=== PATIENT | male | born 1995 | race Caucasian/White ===

== ENCOUNTER 2018-04-21 07:41 | Day surgery (SDC) | payer OTHER ==
--- NOTE | 2018-04-20 16:07 | PDGENHP ---
History and Physical - Chief Complaint recurrent pilonidal - History of Present Illness 22yo M c recurrent pilonidal cyst. Area occasionally drains and is painful. Waxes and wanes. Denies overt symptoms. Otherwise healthy. History Information I have personally reviewed and updated: medical history, social history, surgical history Review of Systems Review of Systems: ROS: 10pt was reviewed & negative except for what was stated in HPI & below Physical Exam Physical Exam: Constitutional: no apparent distress, appears nourished, not in pain Eyes: PERRL, anicteric sclera, EOMI Ears, Nose, Mouth, Throat: moist mucous membranes, hearing normal, ears appear normal, no oral mucosal ulcers Cardiovascular: regular rate and rhythym, no murmur, rub, or gallop, No edema Respiratory: no respiratory distress, no rales or rhonchi, clear to auscultation Gastrointestinal: normoactive bowel sounds, soft, non-tender abdomen, no palpable masses, other (Rectal: superior cyst, multiple primary openings. ) Genitourinary: no bladder fullness, no bladder tenderness Skin: warm, normal color, no rashes or abrasions, no fluctuance, no induration, No mottled Musculoskeletal: full muscle strength, no muscle tenderness, normal joint ROM, no joint effusions Psychiatric: interacting appropriately, not anxious, not encephalopathic, thought process linear Lymph, Heme, Immunologic: no cervical LAD, no supraclavicular LAD Assessment & Plan Assessment: pilonidal cyst Plan: 22yo M, recurrent pilonidal cyst - to OR for excision and flap closure - RBA discussed
[2018-04-21] MEDS ORDERED: ceFAZolin 2 GM/DEXTROSE 100 ML IV ONE (07:51)
[2018-04-21] MEDS ORDERED: LR 1,000 ML IV ONE (07:52)
[2018-04-21] MEDS ORDERED: METHYLENE BLUE 0.5% 50 MG/10 ML AMP ONE (08:02)
[2018-04-21] MEDS ORDERED: HYDROGEN PEROXIDE 236 ML BOTTLE TP ONE (08:02)
[2018-04-21] MEDS ORDERED: BUPIVACAINE/EPI 0.5% 30 ML SDV ONE (08:02)
--- NOTE | 2018-04-21 08:32 | PDHPUP ---
History & Physical Update H&P update statement: This history and physical update is based on an assessment of the patient which was completed after admission or registration (within 24 hours), but prior to the surgery/procedure. H&P update: H&P reviewed & patient examined, no change in patient's condition since H&P completed
--- NOTE | 2018-04-21 08:59 | PDANEPAE ---
ANE Past Medical History - Cardiovascular History Hx Hypertension: No Hx Arrhythmias: No Hx Chest Pain: No Hx Coronary Artery / Peripheral Vascular Disease: No Hx CHF / Valvular Disease: No Hx Palpitations: No - Pulmonary History Hx COPD: No Hx Asthma/Reactive Airway Disease: No Hx Recent Upper Respiratory Infection: No Hx Oxygen in Use at Home: No Hx Sleep Apnea: No Pulmonary History Comment: RECENTLY HAD BRONCHITIS - Neurologic History Hx Cerebrovascular Accident: No Hx Seizures: No Hx Dementia: No - Endocrine History Hx Diabetes: No Obesity: moderate - Renal History Hx Renal Disorders: No - Liver History Hx Hepatic Disorders: No - Neurological & Psychiatric Hx Hx Neurological and Psychiatric Disorders: No - Cancer History Hx Cancer: No - Congenital Disorder History Hx Congenital Disorders: No - GI History GERD: no Hx Gastrointestinal Disorders: No - Other Health History Other Health History: Autism spectrum - Chronic Pain History Chronic Pain: No - Surgical History Prior Surgeries: appendectomy ANE Review of Systems Review of Systems: - Exercise capacity METS (RN): 4 METS - Systems Respiratory: Reports: cough (bronchitis 2 weeks ago, still coughing) ANE Patient History - Allergies Allergies/Adverse Reactions: No Known Allergies Allergy (Unverified 04/20/18 16:07) - Home Medications Home Medications: Multivitamins 04/21/18 [Last Taken 04/20/18] - NPO status NPO Since - Liquids (Date): 04/20/18 NPO Since - Liquids (Time): 10:45 NPO Since - Solids (Date): 04/20/18 NPO Since - Solids (Time): 10:45 - Anes Hx Anes Hx: no prior problems (1/2 ppd for 5 years) - Smoking Hx Smoking Status: Heavy smoker - Alcohol Use Alcohol Use: None - Family Anes Hx Family Anes Hx: none ANE Labs/Vital Signs - Vital Signs Blood Pressure: 132/68 Heart Rate: 77 Respiratory Rate: 16 O2 Sat (%): 96 Height: 185.42 cm Weight: 131.542 kg ANE Physical Exam - Airway Neck exam: FROM Mallampati Score: Class 1 Mouth exam: normal dental/mouth exam - Pulmonary Pulmonary: clear to auscultation - Cardiovascular Cardiovascular: regular rate and rhythym - ASA Status ASA Status: II ANE Anesthesia Plan Anesthesia Plan: general endotracheal anesthesia
[2018-04-21] MEDS ORDERED: MIDAZOLAM 2 MG/2 ML VIAL IVP ONE (09:00)
[2018-04-21] MEDS ORDERED: PROPOFOL 200 MG/20 ML VIAL ONE (09:03)
[2018-04-21] MEDS ORDERED: DEXAMETHASONE 4 MG/ML VIAL ONE (09:03)
[2018-04-21] MEDS ORDERED: fentaNYL 250 MCG/5 ML INJ ONE (09:03)
[2018-04-21] MEDS ORDERED: ROCURONIUM 50 MG/5 ML VIAL ONE (09:03)
[2018-04-21] MEDS ORDERED: MIDAZOLAM 2 MG/2 ML VIAL ONE (09:08)
[2018-04-21] MEDS ORDERED: ONDANSETRON 4 MG/2 ML VIAL ONE (09:43)
[2018-04-21] MEDS ORDERED: NALOXONE HCL 0.4 MG/ML INJ IVP PRN (10:01)
[2018-04-21] MEDS ORDERED: ONDANSETRON 4 MG/2 ML VIAL IVP PRN (10:01)
[2018-04-21] MEDS ORDERED: fentaNYL 100 MCG/2 ML INJ IVP PRN (10:01)
[2018-04-21] MEDS ORDERED: BACITRACIN ZINC 14.2 GM OINTTUBE TP ONE (10:06)
[2018-04-21] MEDS ORDERED: SUGAMMADEX SODIUM 200 MG/2 ML VIAL IVP ONE (10:27)
--- NOTE | 2018-04-21 10:39 | POSTOPPROG ---
Post Op Note Date of Operation: 04/21/18 Surgeon: Abdullahi Sal Anesthesiologist: Rufino Anesthesia: GET(General Endotracheal) Pre-op Diagnosis: pilonidal cyst Post-op Diagnosis: same Procedure: pilonidal cystectomy with modified Karydakis flap closure Findings: one main tract, down to presacral fascia Inf/Abcess present in the surg proc area at time of surgery?: No EBL: Minimal Specimen(s): pilonidal cyst
[2018-04-21 12:07] VITALS: BP 131/67
--- NOTE | 2018-04-21 12:49 | GOP ---
[f rep st] OPERATIVE REPORT DATE OF OPERATION: 04/21/2018 SURGEON: Abdullahi Sal MD PUNCH HAND: None. ANESTHESIA: General endotracheal. ANESTHESIOLOGIST: Av Joy MD. PREOPERATIVE DIAGNOSIS: Symptomatic pilonidal cyst. POSTOPERATIVE DIAGNOSIS: Symptomatic pilonidal cyst. PROCEDURE PERFORMED: 1. Pilonidal cystectomy. 2. Modified Karydakis flap closure. FINDINGS: One single tract identified using hydrogen peroxide. Cyst completely removed all the way down to presacral fascia. Area closed with modified Karydakis flap closure in layers. SPECIMENS: Pilonidal cyst and tract. ESTIMATED BLOOD LOSS: 15 cc. DESCRIPTION OF PROCEDURE: The patient and his mother were greeted in the preoperative suite. Once again, risks, benefits, and alternatives were discussed. The consent was then signed. He was then brought back to the operative suite after undergoing a [employer] time-out. The patient was successfully intubated on the medical gurwhitehall. He was then placed on the OR table in the prone position with all pressure points appropriately padded. The perineal and gluteal area were then prepped and draped in the typical sterile fashion. I commenced the procedure by using hydrogen peroxide as well as lacrimal probes to identify the tract. I identified only 1 major tract which appeared to start in the midline and then veer left superiorly. I excised the entire pilonidal cyst with its multiple primary and secondary crypts all the way down to presacral fascia, and carried my dissection somewhat to the patient's right to allow an off midline flap- type closure. After hemostasis was achieved, I injected local anesthesia into the presacral fascia, the extent of my dissection. I created a flap to the contralateral side, undermining both the skin and fat in a layered fashion. I then proceeded to close the area in layers. The deepest most was done with multiple interrupted 0 Vicryl. I then graduated to 2-0 Vicryl and finally 3-0 Vicryl. The skin was finally reapproximated with interrupted 2-0 nylon sutures. Sterile dressing was placed. The patient was then placed back onto his medical gurney in a supine position. He was then extubated and taken to the operative suite in satisfactory condition. DRAINS: None. COUNTS: All counts were reported as correct x2. /[id number]/MODL MTDD
--- NOTE | 2018-04-21 22:31 | POSTANESTH ---
Post Anesthetic Evaluation Cardiovascular Status: Normal, Stable Respiratory Status: Normal, Stable Level of Consciousness/Mental Status: Can Participate in Eval Pain Control: Adequate, Prn Tx Ordered Nausea/Vomiting Control: Adequate, Prn Tx Ordered Complications Possibly Related to Anesthesia: None Noted
== END 2018-04-21 12:25 | disposition home or self-care (01) ==
LOC: FSGY 07:41
PROVIDERS: ATTEND Surgery
PROC: 0JB90ZZ Excision of Buttock Subcutaneous Tissue and Fascia, Open Approach (ICD-10-PCS; principal; 2018-04-21 09:45)
DX: L05.91 Pilonidal cyst without abscess (principal); F17.200 Nicotine dependence, unspecified, uncomplicated
CPT/HCPCS: J0690; J1100; J2250; J2405; J2704; J3010; Q9968